=== PATIENT | male | born 1980 | race American Indian/Alaskan Native ===

== ENCOUNTER 2022-06-14 15:21 | Emergency (ER) | payer BC ==
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
[2022-06-14 17:13] VITALS: BP 134/80
== END 2022-06-14 17:25 | disposition home or self-care (01) ==
LOC: ED 15:21
DX: M54.2 Cervicalgia (principal); M25.519 Pain in unspecified shoulder; V89.2XXA Person injured in unspecified motor-vehicle accident, traffic, initial encounter; Y93.89 Activity, other specified; Y92.89 Other specified places as the place of occurrence of the external cause; Y99.8 Other external cause status
CPT/HCPCS: 99282